=== PATIENT | male | born 1995 | race Caucasian/White ===

== ENCOUNTER 2023-02-12 12:26 | Emergency (ER) | payer SELFPAY ==
[2023-02-12] MEDS ORDERED: Albuterol/Ipratropium 3.0-0.5 MG/3 ML Neb Soln NEB ONE (13:37)
== END 2023-02-12 13:49 | disposition left against medical advice (07) ==
LOC: JD.ED 12:26
DX: R06.02 Shortness of breath (principal); R05.1 Acute cough; Z20.822 Contact with and (suspected) exposure to COVID-19
CPT/HCPCS: 99284

== ENCOUNTER 2023-02-25 19:27 | Emergency (ER) | payer SELFPAY ==
[2023-02-25 19:44] VITALS: BP 140/93; PULSE 103
== END 2023-02-25 19:55 ==
LOC: JD.ED 19:27
DX: Z53.21 Procedure and treatment not carried out due to patient leaving prior to being seen by health care provider (principal)